=== PATIENT | female | born 1965 | race Caucasian/White ===

== ENCOUNTER 2020-10-24 20:24 | Inpatient (IN) ==
[2020-10-24 22:02] VITALS: BMI 36.3
--- NOTE | 2020-10-24 23:00 | DR.URIAD ---
HPI Time Seen Time Seen by Provider: 10/24/20 22:59 PCP Primary Care Physician: KIMBERLY HPI Comment HPI Comment: PATIENT IS 54YR OLD FEMALE IN ER WITH INCREASING SOB AFTER TESTING POSITIVE FOR COVID 19 VIRUS 11 DAYS AGO. HE TOOK ANTIBIOTIC AND STERIOD. HE CONTINUE TO GET WORSE. Complaint Chief Complaint Doctors Comments: INCREASING SOB. COVID 19 VIRUS POSITIVE 10/14/20. Chief Complaint:: PT AMBUALTORY IN ED WITH C/O DIFFICULTY BREATHING. PT STATES SHE TESTED POSITIVE 10/14 AND WAS PUT ON ZITHROMAX, DECADRON, PLAQUINEL AND VITAMINS. COVID-19 Coronavirus risk:travel/contact w/high risk person: Yes Has patient experienced Coronavirus symptoms: Yes Coronavirus symptoms experienced: Fever, Coughing and Shortness of Breath Reviewed Nurses Notes Reviewed: Yes Source History Provided: Patient Mode of Arrival Mode of Arrival: Ambulatory Timing Onset of Chief Complaint: 10/13/20 Context Recent Treated Infections: URI History of Respiratory: Bronchitis and Steroid Use Quality Quality of Cough: None, Productive and Yellow Rhinorrhea: Clear Shortness of Breath: Moderate Associated Signs and Symptoms Other Signs and Symptoms: Cough, Myalgias, Nasal Symptoms, Shortness of Breath and URI PMH PMH Past Medical History: Yes Past Medical History: Hypertension Past Surgical History: Yes Surgical History: Family History History of Family Medical Conditions: Yes Family Medical History: Diabetes Mellitus, Cancer, [place], Coronary Artery Disease and Hypertension Social History Does patient currently use any type of tobacco product: Yes Have you used tobacco products in the last 12 months: Yes Type of Tobacco Use: Cigarettes Does any household member use tobacco: No Alcohol Use: None Do you use any recreational Drugs:: No Lives With: Spouse and Family Lives Where: Home Travel Risk Coronavirus risk:travel/contact w/high risk person: Yes Has patient experienced Coronavirus symptoms: Yes Coronavirus symptoms experienced: Fever, Coughing and Shortness of Breath Infectious screening In the last 2 months have you had wt loss of >10#?: NO Have you had fever, night sweats or hemotysis?: No Have you traveled outside the country in the last 6 months?: No Isolation: Droplet ROS Review of Systems Constitutional: See HPI, Weakness and Fatigue; negative Fever Eyes: No Symptoms Reported and See HPI ENTM: See HPI, Nose Discharge and Nose Congestion Respiratoy: See HPI, Productive Cough and Short of Breath; negative Wheezing Cardiovascular: See HPI and Chest Pain (TIGHTNESS.) Gastrointestinal/Abdominal: No Symptoms Reported, See HPI and Abdominal Pain; negative Diarrhea Genitourinary: No Symptoms Reported and See HPI; negative Dysuria and Hematuria Neurological: See HPI, Headache and Weakness; negative Dizziness Musculoskeletal: See HPI and Muscle Pain; negative Back Pain Integumentary: No Symptoms Reported and See HPI; negative Change in Color, Rash and Juandice Hematologic/Lymphatic: No Symptoms Reported and See HPI; negative Easy Bruising and Swollen Glands Endocrine: No Symptoms Reported and See HPI; negative Increased Thirst and Increased Urine Psychiatric: No Symptoms Reported and See HPI All Other Systems: Reviewed and Negative PE Vital Signs Vitals: Temperature 98.4 F Pulse Rate [Left] 85 Pulse Rate 87 Respiratory Rate 26 Blood Pressure [Left Arm] 116/67 Blood Pressure 134/77 O2 Sat by Pulse Oximetry 93 General Limitations: No Limitations General Appearance: Alert and In No Apparent Distress Head Head Exam: Normal Inspection and Atraumatic Eyes Eye exam: Normal Appearance and PERRL; negative Scleral Icterus and Conjunctival Injection ENT ENT Exam: Normal External Ear Exam; negative Normal Oropharynx and TM's Normal Bilaterally External Ear Exam: Normal External Inspection; negative Mastoid Tenderness TM/Canal Exam: Bilateral: Normal Nose Exam: Normal Nose Exam Mouth Exam: Normal Inspection; negative Lip Swelling and Tongue Swelling Throat Exam: Tonsillar Erythema; negative Tonsillomegaly and Tonsillar Exudate Neck Neck Exam: Normal Inspection and Trachea Midline; negative Tenderness and Lymphadenopathy Chest Chest Inspection: Normal Inspection and Symmetric Chest Wall Rise; negative Tenderness Respiratory Respiratory Exam: Normal Lung Sounds Bilat; negative Accessory Muscle Use, Chest Wall Tenderness and Respiratory Distress Respiratory Exam: Bilateral: Rhonchi and Lower: Rhonchi Cardiovascular Cardiovascular Exam: Regular Rate, Normal Rhythm and Normal Heart Sounds; negative Systolic Murmur and Diastolic Murmur Abdominal Exam Abdominal Exam: Normal Inspection, Normal Bowel Sounds and Soft; negative Tenderness Extremeties Extremities Exam: Normal Inspection, Tenderness and Normal Capillary Refill; negative Edema and Calf Tenderness Back Back Exam: Normal Inspection; negative (R) CVA Tenderness and (L) CVA Tenderness Neurologic Neurological Exam: Alert, Oriented X3 and CN II-XII Intact; negative Motor Sensory Deficit Psychiatric Psychiatric Exam: Normal Affect and Normal Mood Skin Skin Exam: Warm, Dry, Intact and Normal Color MDM Differential Diagnosis Differential Diagnosis: Otitis media, Streptococcal pharyngitis, Viral pharyngitis, Pneumonia (COVID 19 VIRUS INFECTION.), Sinsusitis and URI COURSE Treatment Treatment: SEE ORDERS. Education/Counseling Education/Counseling: Patient Educated On: Diagnosis ROR Labs Reviewed Laboratory Results Reviewed?: Yes Result Diagrams: 10/28/20 06:23 10/28/20 06:23 Laboratory: 10/24/20 23:40 Blood Blood Culture - Final 10/24/20 23:36 Blood Blood Culture - Final WBC 20.7 X10^3/uL (3.6-10.0) H 10/24/20 23:36 RBC 4.78 X10^6/uL (3.5-5.4) 10/24/20 23:36 Hgb 13.2 g/dL (12.0-16.0) 10/24/20 23:36 Hct 39.8 % (36.0-47.0) 10/24/20 23:36 MCV 83.3 fL (80.0-100.0) 10/24/20 23:36 MCH 27.6 pg (27.0-34.0) 10/24/20 23:36 MCHC 33.2 g/dL (33.0-35.0) 10/24/20 23:36 RDW 13.4 % (11.6-16.5) 10/24/20 23:36 Plt Count 276 X10^3/uL (150.0-450.0) 10/24/20 23:36 Plt Count Comment Adequate (ADEQUATE) 10/24/20 23:36 MPV 8.7 fL (7.4-11.0) 10/24/20 23:36 Neut % (Auto) 77.9 % (42.0-75.0) H 10/24/20 23:36 Lymph % (Auto) 15.1 % (21.0-51.0) L 10/24/20 23:36 [place] % (Auto) 6.5 % (0.0-13.0) 10/24/20 23:36 Eos % (Auto) 0.3 % (0.9-2.9) L 10/24/20 23:36 Baso % (Auto) 0.2 % (0.2-1.0) 10/24/20 23:36 Neut # (Auto) 16.2 x10^3/uL (2.2-4.8) H 10/24/20 23:36 Lymph # (Auto) 3.1 X10^3/uL (1.3-2.9) H 10/24/20 23:36 [place] # (Auto) 1.3 x10^3/uL (0.3-0.8) H 10/24/20 23:36 Eos # (Auto) 0.1 x10^3/uL (0.0-0.2) 10/24/20 23:36 Baso # (Auto) 0.0 X10^3/uL (0.0-0.1) 10/24/20 23:36 Absolute Nucleated RBC 0.0 /100WBC 10/24/20 23:36 Total Counted 100 10/24/20 23:36 Neutrophils % (Manual) 85 % (39-76) H 10/24/20 23:36 Lymphocytes % (Manual) 14 % (13-43) 10/24/20 23:36 Monocytes % (Manual) 1 % (4-9) L 10/24/20 23:36 Plt Morphology Comment Normal (NORMAL) 10/24/20 23:36 RBC Morphology Normal (NORMAL) 10/24/20 23:36 D-Dimer 0.43 ug/ml (0.0-0.57) 10/24/20 23:36 Sample Site Lrad 10/24/20 23:35 ABG pH 7.490 (7.35-7.45) H 10/24/20 23:35 ABG pCO2 36.0 mmHg (35.0-45.0) 10/24/20 23:35 ABG pO2 54.0 mmHg (80.0-100.0) L 10/24/20 23:35 ABG HCO3 27.4 mmol/L (22-26) H 10/24/20 23:35 ABG O2 Saturation 90.0 % (90-100) 10/24/20 23:35 ABG Base Excess 4.0 mmol/L (-2.0-2.0) H 10/24/20 23:35 Steve Test Pos 10/24/20 23:35 A-a Gradient 51.0 mmHg 10/24/20 23:35 FiO2 21.0 10/24/20 23:35 Blood Gas Comments Miki abg well-mtf 10/24/20 23:35 Sodium 127 mmol/L (136-145) L 10/24/20 23:36 Corrected Sodium 135 mmol/L (136-145) L 10/24/20 23:36 Potassium 3.8 mmol/L (3.5-5.1) 10/24/20 23:36 Chloride 90 mmol/L (98-107) L 10/24/20 23:36 Carbon Dioxide 26.7 mmol/L (21-32) 10/24/20 23:36 BUN 30 mg/dL (7-18) H 10/24/20 23:36 Creatinine 1.14 mg/dL (0.55-1.02) H 10/24/20 23:36 Est GFR (MDRD) Af Amer > 60 (>60) 10/24/20 23:36 Est GFR (MDRD) Non-Af 52 (>60) L 10/24/20 23:36 Glucose 442 mg/dL (65-99) H 10/24/20 23:36 Hemoglobin A1c 8.5 % 10/24/20 23:36 Lactic Acid 1.5 mmol/L (0.4-2.0) 10/24/20 23:36 Calcium 9.8 mg/dL (8.5-10.1) 10/24/20 23:36 Corrected Calcium 10.9 mg/dL (8.5-10.1) H 10/24/20 23:36 Total Bilirubin 0.50 mg/dL (0.2-1.0) 10/24/20 23:36 AST 30 Units/L (15-37) 10/24/20 23:36 ALT 41 Units/L (12-78) 10/24/20 23:36 Alkaline Phosphatase 78 Units/L (46-116) 10/24/20 23:36 Creatine Kinase 361 Units/L (26-192) H 10/24/20 23:36 CK-MB (CK-2) 1.5 ng/mL (0-4.0) 10/24/20 23:36 CK/CKMB % Calc 0.4 % (<4) 10/24/20 23:36 Troponin I < 0.02 ng/mL (0-1.5) 10/24/20 23:36 C-Reactive Protein 130.50 mg/L (0-3.0) H 10/24/20 23:36 Total Protein 7.3 g/dL (6.4-8.2) 10/24/20 23:36 Albumin 2.6 g/dL (3.4-5.0) L 10/24/20 23:36 Globulin 4.7 g/dL (2.5-4.5) H 10/24/20 23:36 Albumin/Globulin Ratio 0.6 Ratio (1.1-2.1) L 10/24/20 23:36 Specimen Type Clean catch urine 10/25/20 01:05 Urine Color Straw (YELLOW) 10/25/20 01:05 Urine Appearance Clear (CLEAR) 10/25/20 01:05 Urine pH 6.0 (5.0 - 8.0) 10/25/20 01:05 Ur Specific [place] 1.015 (1.000-1.030) 10/25/20 01:05 Urine Protein 2+ (NEGATIVE) 10/25/20 01:05 Urine Glucose (UA) 4+ (NEGATIVE) 10/25/20 01:05 Urine Ketones Negative (NEGATIVE) 10/25/20 01:05 Urine Occult Blood 1+ (NEGATIVE) 10/25/20 01:05 Urine Nitrite Negative (NEGATIVE) 10/25/20 01:05 Urine Bilirubin Negative (NEGATIVE) 10/25/20 01:05 Urine Urobilinogen Normal (NORMAL) 10/25/20 01:05 Ur Leukocyte Esterase Negative (NEGATIVE) 10/25/20 01:05 Urine RBC 0-2 /HPF (0-3) 10/25/20 01:05 Urine WBC None seen /HPF (0-5) 10/25/20 01:05 Ur Squamous Epith Cells Moderate /HPF (NEGATIVE) 10/25/20 01:05 Urine Bacteria Trace /HPF (NEGATIVE) 10/25/20 01:05 Ur Culture Indicated? No/not indicated 10/25/20 01:05 Acetone, Semi-Quant Negative (NEGATIVE) 10/24/20 23:36 XRAY XRAY Interpreted by: Radiologist (REPORT NOTED AND DISCUSSED WITH PATIENT.) and Self EKG Rate: 73 [place]: Normal Rhythm: NSR Block: IVCD Hypertrophy: LAE ST: Old, Inf, Infarct and Nonsp Opioid Opioid Risk Tool Age (Lazarus box if 16-45): No History of Preadolescent Sexual Abuse: No Total: 0 Total Score Risk Category: Low Risk Copyright: [facility] predicting aberrant behaviors Diagnosis Discharge Problem: SOB (shortness of breath), Hyperglycemia, Hypoxia, COVID-19 virus infection Pneumonia Qualifiers: Pneumonia type: due to unspecified organism Laterality: bilateral Lung location: lower lobe of lung Qualified Code(s): J18.9 - Pneumonia, unspecified organism Instructions Instructions: Anemia Viral Respiratory Infection, Ghvf-Tl-Gysu Home Oxygen Use, Adult Steps to Quit Smoking, Arwl-cl-Cfrn Type 2 Diabetes Mellitus, Self Care, Adult, Jxzg-xe-Ylru Health Risks of Smoking How to Take Your Blood Pressure, Hoou-kp-Lafp Droplet Precautions, Okhb-kn-Uqlw Contact Precautions, Jgoc-pe-Kjrs Hypertension, Mzln-eb-Zsig Acute Respiratory Failure, Adult Tobacco Use Disorder Community-Acquired Pneumonia, Adult Forms: Precautions for COVID19 Patient Portal Social Distancing
[2020-10-24 23:36] LABS: ABG HCO3 27.4 mmol/L (22-26)
[2020-10-24 23:37] LABS: ABG ALLEN TEST POS
[2020-10-24 23:52] LABS: BASOPHILS % (AUTO) 0.2 % (0.2-1.0); EOSINOPHILS # (AUTO) 0.1 x10^3/uL (0.0-0.2); EOSINOPHILS % (AUTO) 0.3 % (0.9-2.9); HEMATOCRIT 39.8 % (36.0-47.0); HEMOGLOBIN 13.2 g/dL (12.0-16.0); LYMPHOCYTES # (AUTO) 3.1 X10^3/uL (1.3-2.9); LYMPHOCYTES % (AUTO) 15.1 % (21.0-51.0); MEAN CORPUSCULAR HEMOGLOBIN 27.6 pg (27.0-34.0); MEAN CORPUSCULAR HGB CONC 33.2 g/dL (33.0-35.0); MEAN CORPUSCULAR VOLUME 83.3 fL (80.0-100.0); MEAN PLATELET VOLUME 8.7 fL (7.4-11.0); MONOCYTES # (AUTO) 1.3 x10^3/uL (0.3-0.8); MONOCYTES % (AUTO) 6.5 % (0.0-13.0); NEUTROPHILS # (AUTO) 16.2 x10^3/uL (2.2-4.8); NEUTROPHILS % (AUTO) 77.9 % (42.0-75.0); PLATELET COUNT 276 X10^3/uL (150.0-450.0); RED BLOOD COUNT 4.78 X10^6/uL (3.5-5.4); RED CELL DISTRIBUTION WIDTH 13.4 % (11.6-16.5); WHITE BLOOD COUNT 20.7 X10^3/uL (3.6-10.0)
[2020-10-25 00:05] LABS: ALANINE AMINOTRANSFERASE 41 Units/L (12-78); ALBUMIN 2.6 g/dL (3.4-5.0); ALKALINE PHOSPHATASE 78 Units/L (46-116); ASPARTATE AMINO TRANSFERASE 30 Units/L (15-37); BLOOD UREA NITROGEN 30 mg/dL (7-18); CALCIUM 9.8 mg/dL (8.5-10.1); CARBON DIOXIDE 26.7 mmol/L (21-32); CHLORIDE 90 mmol/L (98-107); COR CA(FOR HYPOALB) 10.9 mg/dL (8.5-10.1); COR NA(FOR HYPERGLY) 135 mmol/L (136-145); CREATININE 1.14 mg/dL (0.55-1.02); SODIUM 127 mmol/L (136-145); TOTAL PROTEIN 7.3 g/dL (6.4-8.2); eGFR NON BLACK RACES 52 (>60)
[2020-10-25 00:12] LABS: LACTIC ACID 1.5 mmol/L (0.4-2.0)
[2020-10-25 00:13] LABS: CKMB % 0.4 % (<4); CREATINE KINASE 361 Units/L (26-192); CREATINE KINASE MB 1.5 ng/mL (0-4.0); TROPONIN I < 0.02 ng/mL (0-1.5)
[2020-10-25 00:25] LABS: PLATELET MORPHOLOGY COMMENT NORMAL (NORMAL)
--- NOTE | 2020-10-25 01:05 | RAD ---
HISTORYPT STATES SHE TESTED POSITIVE FOR COVID ON 10/14 AND C/O SOBSTUDYCHEST, 1 VIEWCOMPARISONNoneFINDINGSThe trachea is midline. The cardiac silhouette is unremarkable. There are patchy bibasilar infiltrates. The upper lung arnold are clear. No pleural effusion or pneumothorax.. The bony thorax is unremarkable.IMPRESSIONPatchy bibasilar infiltrates.Electronically signed by: Ean Ronquillo (Oct 25, 2020 01:04:03)
[2020-10-25 01:17] LABS: BILIRUBIN,URINE NEGATIVE (NEGATIVE); BLOOD/HEMOGLOBIN,URINE 1+ (NEGATIVE); GLUCOSE, URINE 4+ (NEGATIVE); KETONES,URINE NEGATIVE (NEGATIVE); LEUKOCYTE ESTERASE ,URINE NEGATIVE (NEGATIVE); NITRITES,URINE NEGATIVE (NEGATIVE); PROTEIN,URINE 2+ (NEGATIVE); UROBILINOGEN,URINE NORMAL (NORMAL)
[2020-10-25 01:19] LABS: COLOR,URINE STRAW (YELLOW)
[2020-10-25 01:20] LABS: APPEARANCE,URINE CLEAR (CLEAR)
[2020-10-25 01:28] LABS: RBC,URINE 0-2 /HPF (0-3)
[2020-10-25 01:29] LABS: BACTERIA,URINE TRACE /HPF (NEGATIVE); SQUAMOUS EPITHELIAL CELL,UR MODERATE /HPF (NEGATIVE)
[2020-10-25] MEDS ORDERED: LEVAQUIN PREMIX IV 750 MG 750 MG/150 ML BAG IV ONE ×2 (03:08→03:18)
[2020-10-25] MEDS ORDERED: SOLU-Medrol 125 MG VIAL IVP ONE (03:09)
[2020-10-25] MEDS ORDERED: DUONEB 0.5 MG/3 MG (3 mL) NEB ONE ×2 (03:10→14:14)
[2020-10-25] MEDS ORDERED: SOLU-Medrol 125 MG VIAL ONE ×2 (03:17→12:26)
[2020-10-25] MEDS ORDERED: NS 1000 ML 1,000 ML ONE ×2 (03:17→06:51)
[2020-10-25 03:25] LABS: SERUM ACETONE NEGATIVE (NEGATIVE)
[2020-10-25 03:29] LABS: HEMOGLOBIN A1C 8.5 %
[2020-10-25] MEDS: NS 1000 ML 1,000 ML IV SCH ×4 (03:42→21:42)
[2020-10-25] MEDS ORDERED: TUSSIONEX PENNKINETIC SUSP PO PRN (04:24)
[2020-10-25 05:23] LABS: BASOPHILS % (AUTO) 0.2 % (0.2-1.0); EOSINOPHILS % (AUTO) 0.2 % (0.9-2.9); HEMATOCRIT 39.1 % (36.0-47.0); HEMOGLOBIN 12.9 g/dL (12.0-16.0); LYMPHOCYTES # (AUTO) 2.5 X10^3/uL (1.3-2.9); LYMPHOCYTES % (AUTO) 15.2 % (21.0-51.0); MEAN CORPUSCULAR HEMOGLOBIN 27.7 pg (27.0-34.0); MEAN CORPUSCULAR VOLUME 83.9 fL (80.0-100.0); MEAN PLATELET VOLUME 8.8 fL (7.4-11.0); MONOCYTES % (AUTO) 5.8 % (0.0-13.0); NEUTROPHILS # (AUTO) 13.2 x10^3/uL (2.2-4.8); NEUTROPHILS % (AUTO) 78.6 % (42.0-75.0); PLATELET COUNT 243 X10^3/uL (150.0-450.0); RED BLOOD COUNT 4.66 X10^6/uL (3.5-5.4); RED CELL DISTRIBUTION WIDTH 13.5 % (11.6-16.5); WHITE BLOOD COUNT 16.8 X10^3/uL (3.6-10.0)
[2020-10-25 05:35] LABS: ALANINE AMINOTRANSFERASE 40 Units/L (12-78); ALBUMIN 2.5 g/dL (3.4-5.0); ALKALINE PHOSPHATASE 71 Units/L (46-116); ASPARTATE AMINO TRANSFERASE 30 Units/L (15-37); BLOOD UREA NITROGEN 33 mg/dL (7-18); CALCIUM 9.6 mg/dL (8.5-10.1); CARBON DIOXIDE 24.9 mmol/L (21-32); CHLORIDE 92 mmol/L (98-107); COR CA(FOR HYPOALB) 10.8 mg/dL (8.5-10.1); COR NA(FOR HYPERGLY) 137 mmol/L (136-145); CREATININE 1.11 mg/dL (0.55-1.02); SODIUM 129 mmol/L (136-145); TOTAL PROTEIN 7.2 g/dL (6.4-8.2); eGFR NON BLACK RACES 54 (>60)
[2020-10-25] MEDS ORDERED: REMDESIVIR 200 MG in NS 250 ML IV 250 ML IV NR (07:47)
[2020-10-25] MEDS ORDERED: LOSARTAN HYDROCHLOROTHIAZIDE PO SCH (09:00)
[2020-10-25] MEDS ORDERED: LIPITOR TAB 20 MG PO SCH (09:00)
[2020-10-25] MEDS ORDERED: ASPIRIN EC 81 MG PO SCH (09:00)
[2020-10-25] MEDS ORDERED: REMDESIVIR IV ONE (09:18)
[2020-10-25] MEDS ORDERED: LOPRESSOR TAB 50 MG ONE (09:18)
[2020-10-25] MEDS ORDERED: NS 250 ML IV 250 ML IV ONE (09:19)
[2020-10-25] MEDS: VSL#3 PO SCH (09:59)
[2020-10-25] MEDS: HYZAAR 50/12.5 MG PO SCH (09:59)
[2020-10-25] MEDS: VITAMIN C PO SCH (10:01)
[2020-10-25] MEDS: VITAMIN D3 125 mcg (5,000 UNITS) PO SCH (10:01)
[2020-10-25] MEDS: LOPRESSOR TAB 50 MG PO SCH ×2 (10:01→22:06)
[2020-10-25] MEDS: VITAMIN A PO SCH (10:01)
[2020-10-25] MEDS: ROBITUSSIN DM PO SCH ×4 (10:02→22:07)
[2020-10-25] MEDS ORDERED: LOVENOX INJ 40 MG SYR SC ONE (12:26)
[2020-10-25] MEDS ORDERED: HumuLIN R ONE (12:27)
[2020-10-25] MEDS: LOVENOX INJ 40 MG SYR SC SCH (12:48)
[2020-10-25] MEDS: HumuLIN R SC PRN ×3 (12:50→23:29)
[2020-10-25] MEDS: DUONEB 0.5 MG/3 MG (3 mL) NEB SCH ×2 (14:00→20:35)
[2020-10-25] MEDS: SOLU-Medrol 125 MG VIAL IVP SCH ×2 (14:23→22:07)
--- NOTE | 2020-10-25 16:05 | DR.H&P ---
H&P History & Physical for Day of: H&P Date: 10/25/20 Chief Complaint Chief Complaint: weakness, cough and shortness of breath Allergies Allergies Allergy/AdvReac Type Severity Reaction Status Date / Time No Known Drug Allergies Allergy Verified 10/24/20 22:02 History of Present Illness History of Present Illness: Ms. Sahu is a 54y/o female with a PMH of HTN pr esented with worsening dyspnea, cough and weakness. She tested positive for COVID-19 on 10/13 and reports worsening shortness of breath since then. She states yesterday it got worse and she felt like she wasn't able to breathe so came to the ED. She did complete a course of z-pack, decadron and plaquenil as given by her PCP. She states she is feeling slightly better now. She is currently on 5L O2 via NC. ER work up - CXR: patchy bilateral infiltrates Labs: WBC 20, now 16.8 , Hgb 12.9, Glucose 429 D-dimer (-) A1C 8.5 Acetone (-) ABG 7.49/36/54/27.4 Plan: continue IV levquin, start solumedrol and Remdesivir. Wean O2 as tolerated. Continue bronchodilators. Add vitamin supplements. Start SSI. Check CRP. Monitor AM labs. Follow up ABG and CXR. Resume home medications. Past Medical History Past Medical History: Hypertension Past Surgical History Surgical History: Family History Family Medical History: Hypertension Social History Does patient currently use any type of tobacco product: Yes Have you used tobacco products in the last 12 months: Yes Type of Tobacco Use: Cigarettes Does any household member use tobacco: No Alcohol Use: None Drug Use: None Prescription drug monitoring program results: PDMP reviewed and no concerns identified Medications Home Medications: No Known Drug Allergies Allergy (Verified 10/24/20 22:02) CONTINUE taking the following medications aspirin 81 mg PO DAILY 10/25/20 [History] atorvastatin 20 mg PO DAILY 10/25/20 [History] losartan-hydrochlorothiazide 1 tab PO DAILY 10/25/20 [History] metoprolol tartrate 50 mg PO BID 10/25/20 [History] Labs Result Diagrams: 10/25/20 05:17 10/25/20 05:17 Labs: Laboratory WBC 16.8 X10^3/uL (3.6-10.0) H 12/28/20 05:17 RBC 4.66 X10^6/uL (3.5-5.4) 10/25/20 05:17 Hgb 12.9 g/dL (12.0-16.0) 10/25/20 05:17 Hct 39.1 % (36.0-47.0) 10/25/20 05:17 MCV 83.9 fL (80.0-100.0) 10/25/20 05:17 MCH 27.7 pg (27.0-34.0) 10/25/20 05:17 MCHC 33.0 g/dL (33.0-35.0) 10/25/20 05:17 RDW 13.5 % (11.6-16.5) 10/25/20 05:17 Plt Count 243 X10^3/uL (150.0-450.0) 10/25/20 05:17 Plt Count Comment Adequate (ADEQUATE) 10/24/20 23:36 MPV 8.8 fL (7.4-11.0) 10/25/20 05:17 Neut % (Auto) 78.6 % (42.0-75.0) H 10/25/20 05:17 Lymph % (Auto) 15.2 % (21.0-51.0) L 10/25/20 05:17 [place] % (Auto) 5.8 % (0.0-13.0) 10/25/20 05:17 Eos % (Auto) 0.2 % (0.9-2.9) L 10/25/20 05:17 Baso % (Auto) 0.2 % (0.2-1.0) 10/25/20 05:17 Neut # (Auto) 13.2 x10^3/uL (2.2-4.8) H 10/25/20 05:17 Lymph # (Auto) 2.5 X10^3/uL (1.3-2.9) 10/25/20 05:17 [place] # (Auto) 1.0 x10^3/uL (0.3-0.8) H 10/25/20 05:17 Eos # (Auto) 0.0 x10^3/uL (0.0-0.2) 10/25/20 05:17 Baso # (Auto) 0.0 X10^3/uL (0.0-0.1) 10/25/20 05:17 Absolute Nucleated RBC 0.0 /100WBC 10/25/20 05:17 Total Counted 100 10/24/20 23:36 Neutrophils % (Manual) 85 % (39-76) H 10/24/20 23:36 Lymphocytes % (Manual) 14 % (13-43) 10/24/20 23:36 Monocytes % (Manual) 1 % (4-9) L 10/24/20 23:36 Plt Morphology Comment Normal (NORMAL) 10/24/20 23:36 RBC Morphology Normal (NORMAL) 10/24/20 23:36 D-Dimer 0.43 ug/ml (0.0-0.57) 10/24/20 23:36 Sample Site Lrad 10/24/20 23:35 ABG pH 7.490 (7.35-7.45) H 10/24/20 23:35 ABG pCO2 36.0 mmHg (35.0-45.0) 10/24/20 23:35 ABG pO2 54.0 mmHg (80.0-100.0) L 10/24/20 23:35 ABG HCO3 27.4 mmol/L (22-26) H 10/24/20 23:35 ABG O2 Saturation 90.0 % (90-100) 10/24/20 23:35 ABG Base Excess 4.0 mmol/L (-2.0-2.0) H 10/24/20 23:35 Steve Test Pos 10/24/20 23:35 A-a Gradient 51.0 mmHg 10/24/20 23:35 FiO2 21.0 10/24/20 23:35 Blood Gas Comments Miki abg well-mtf 10/24/20 23:35 Sodium 129 mmol/L (136-145) L 10/25/20 05:17 Corrected Sodium 137 mmol/L (136-145) 10/25/20 05:17 Potassium 3.8 mmol/L (3.5-5.1) 10/25/20 05:17 Chloride 92 mmol/L (98-107) L 10/25/20 05:17 Carbon Dioxide 24.9 mmol/L (21-32) 10/25/20 05:17 BUN 33 mg/dL (7-18) H 10/25/20 05:17 Creatinine 1.11 mg/dL (0.55-1.02) H 10/25/20 05:17 Est GFR (MDRD) Af Amer > 60 (>60) 10/25/20 05:17 Est GFR (MDRD) Non-Af 54 (>60) L 10/25/20 05:17 Glucose 434 mg/dL (65-99) H 10/25/20 05:17 POC Glucose (mg/dL) 429 mg/dL (65-99) H 10/25/20 05:50 Hemoglobin A1c 8.5 % 10/24/20 23:36 Lactic Acid 1.5 mmol/L (0.4-2.0) 10/24/20 23:36 Calcium 9.6 mg/dL (8.5-10.1) 10/25/20 05:17 Corrected Calcium 10.8 mg/dL (8.5-10.1) H 10/25/20 05:17 Total Bilirubin 0.50 mg/dL (0.2-1.0) 10/25/20 05:17 AST 30 Units/L (15-37) 10/25/20 05:17 ALT 40 Units/L (12-78) 10/25/20 05:17 Alkaline Phosphatase 71 Units/L (46-116) 10/25/20 05:17 Creatine Kinase 361 Units/L (26-192) H 10/24/20 23:36 CK-MB (CK-2) 1.5 ng/mL (0-4.0) 10/24/20 23:36 CK/CKMB % Calc 0.4 % (<4) 10/24/20 23:36 Troponin I < 0.02 ng/mL (0-1.5) 10/24/20 23:36 C-Reactive Protein 130.50 mg/L (0-3.0) H 10/24/20 23:36 Total Protein 7.2 g/dL (6.4-8.2) 10/25/20 05:17 Albumin 2.5 g/dL (3.4-5.0) L 10/25/20 05:17 Globulin 4.7 g/dL (2.5-4.5) H 10/25/20 05:17 Albumin/Globulin Ratio 0.5 Ratio (1.1-2.1) L 10/25/20 05:17 Specimen Type Clean catch urine 10/25/20 01:05 Urine Color Straw (YELLOW) 10/25/20 01:05 Urine Appearance Clear (CLEAR) 10/25/20 01:05 Urine pH 6.0 (5.0 - 8.0) 10/25/20 01:05 Ur Specific [place] 1.015 (1.000-1.030) 10/25/20 01:05 Urine Protein 2+ (NEGATIVE) 10/25/20 01:05 Urine Glucose (UA) 4+ (NEGATIVE) 10/25/20 01:05 Urine Ketones Negative (NEGATIVE) 10/25/20 01:05 Urine Occult Blood 1+ (NEGATIVE) 10/25/20 01:05 Urine Nitrite Negative (NEGATIVE) 10/25/20 01:05 Urine Bilirubin Negative (NEGATIVE) 10/25/20 01:05 Urine Urobilinogen Normal (NORMAL) 10/25/20 01:05 Ur Leukocyte Esterase Negative (NEGATIVE) 10/25/20 01:05 Urine RBC 0-2 /HPF (0-3) 10/25/20 01:05 Urine WBC None seen /HPF (0-5) 10/25/20 01:05 Ur Squamous Epith Cells Moderate /HPF (NEGATIVE) 10/25/20 01:05 Urine Bacteria Trace /HPF (NEGATIVE) 10/25/20 01:05 Ur Culture Indicated? No/not indicated 10/25/20 01:05 Acetone, Semi-Quant Negative (NEGATIVE) 10/24/20 23:36 SARS CoV-2 RNA Rapid MOLLY Positive (NEGATIVE) A 10/25/20 04:43 Review of Systems Constitutional: Weakness and Malaise Eyes: No Symptoms Reported ENT: Nose Congestion Respiratory: Cough, Shortness of Breath and SOB with Excertion Cardiovascular: Chest Pain Gastrointestinal: No Symptoms Reported Genitourinary: No Symptoms Reported Musculoskeletal: No Symptoms Reported Skin: No Symptoms Reported Neurological: No Symptoms Reported Physical Exam Vital Signs: Temperature 98.4 F Pulse Rate [Left] 78 Pulse Rate 85 Respiratory Rate 22 Blood Pressure [Left Arm] 98/55 Blood Pressure 134/77 O2 Sat by Pulse Oximetry 94 Oriented: Normal Eyes: Normal Ear: Normal Nose: Normal Respiratory: Diminished Throughout and Rhonchi Throughout Cardiovascular: Normal and Tachycardia Auscultation: Bowel Sounds: Normal Palpation: Normal Tenderness: Normal Skin: Normal Musculoskeletal: Normal Mood Description: Calm Affect: Normal Speech Pattern: Clear and Appropriate Assessment/Plan (1) Acute respiratory failure with hypoxia: Status: Acute (2) Pneumonia due to COVID-19 virus: Status: Acute (3) Diabetes: Qualifiers: Diabetes mellitus type: type 2 Diabetes mellitus tank terminal gauger insulin use: without intermediate use Diabetes mellitus complication status: without complication Qualified Code(s): E11.9 - Type 2 diabetes mellitus without complications Status: Acute (4) HTN (hypertension): Qualifiers: Hypertension type: essential hypertension Qualified Code(s): I10 - Essential (primary) hypertension Status: Acute (5) Anemia: Qualifiers: Anemia type: unspecified type Qualified Code(s): D64.9 - Anemia, unspecified Status: Acute Review H&P Reviewed: Yes Patient was examined?: Yes
[2020-10-25] MEDS: LIPITOR TAB 20 MG PO SCH (22:06)
[2020-10-26] MEDS: SOLU-Medrol 125 MG VIAL IVP SCH ×3 (05:38→21:06)
[2020-10-26] MEDS: NS 1000 ML 1,000 ML IV SCH ×4 (05:38→19:58)
[2020-10-26] MEDS ORDERED: HumuLIN R ONE ×2 (05:45→11:40)
[2020-10-26] MEDS: HumuLIN R SC PRN ×4 (05:48→22:17)
[2020-10-26 06:12] LABS: BASOPHILS % (AUTO) 0.1 % (0.2-1.0); HEMATOCRIT 33.8 % (36.0-47.0); HEMOGLOBIN 11.1 g/dL (12.0-16.0); LYMPHOCYTES # (AUTO) 2.9 X10^3/uL (1.3-2.9); LYMPHOCYTES % (AUTO) 17.5 % (21.0-51.0); MEAN CORPUSCULAR HEMOGLOBIN 27.3 pg (27.0-34.0); MEAN PLATELET VOLUME 8.9 fL (7.4-11.0); MONOCYTES # (AUTO) 0.7 x10^3/uL (0.3-0.8); NEUTROPHILS # (AUTO) 12.9 x10^3/uL (2.2-4.8); NEUTROPHILS % (AUTO) 78.4 % (42.0-75.0); PLATELET COUNT 256 X10^3/uL (150.0-450.0); RED BLOOD COUNT 4.07 X10^6/uL (3.5-5.4); RED CELL DISTRIBUTION WIDTH 13.6 % (11.6-16.5); WHITE BLOOD COUNT 16.4 X10^3/uL (3.6-10.0)
[2020-10-26 06:41] LABS: BLOOD UREA NITROGEN 29 mg/dL (7-18); CALCIUM 8.5 mg/dL (8.5-10.1); CARBON DIOXIDE 24.4 mmol/L (21-32); CHLORIDE 101 mmol/L (98-107); COR NA(FOR HYPERGLY) 142 mmol/L (136-145); CREATININE 0.87 mg/dL (0.55-1.02); SODIUM 136 mmol/L (136-145); eGFR NON BLACK RACES > 60 (>60)
[2020-10-26] MEDS: DUONEB 0.5 MG/3 MG (3 mL) NEB SCH ×4 (07:20→21:31)
[2020-10-26] MEDS ORDERED: LOVENOX INJ 40 MG SYR SC ONE (08:17)
[2020-10-26] MEDS ORDERED: REMDESIVIR IV ONE (08:17)
[2020-10-26] MEDS ORDERED: ASPIRIN 81 MG CHEWTAB ONE (08:17)
[2020-10-26] MEDS ORDERED: LOPRESSOR TAB 50 MG ONE (08:17)
[2020-10-26] MEDS ORDERED: NS 250 ML IV 250 ML IV ONE (08:18)
[2020-10-26] MEDS ORDERED: ROBITUSSIN DM ONE (08:18)
[2020-10-26] MEDS: ASPIRIN 81 MG CHEWTAB PO SCH (08:32)
[2020-10-26] MEDS: HYZAAR 50/12.5 MG PO SCH (08:32)
[2020-10-26] MEDS: LOVENOX INJ 40 MG SYR SC SCH (08:34)
[2020-10-26] MEDS: VSL#3 PO SCH (08:36)
[2020-10-26] MEDS: ROBITUSSIN DM PO SCH ×4 (08:36→21:00)
[2020-10-26] MEDS: REMDESIVIR 100 MG in NS 250 ML IV 250 ML IV SCH (08:36)
[2020-10-26] MEDS: VITAMIN C PO SCH (08:37)
[2020-10-26] MEDS: VITAMIN D3 125 mcg (5,000 UNITS) PO SCH (08:37)
[2020-10-26] MEDS: LOPRESSOR TAB 50 MG PO SCH ×2 (08:40→20:59)
[2020-10-26] MEDS: VITAMIN A PO SCH (08:41)
[2020-10-26] MEDS ORDERED: LEVAQUIN PREMIX IV 750 MG 750 MG/150 ML BAG IV ONE (08:44)
[2020-10-26] MEDS: LEVAQUIN PREMIX IV 750 MG 750 MG/150 ML BAG IV SCH (08:45)
[2020-10-26] MEDS ORDERED: LANTUS SC SCH (09:00)
--- NOTE | 2020-10-26 10:11 | RAD ---
HISTORYCOVID-19, hypoxiaSTUDYChest AP [id number] inflation accentuates the heart size. It is likely within normal limits. The earl are normal. The lung arnold now appear clear. The previously noted infiltrates no longer identified. No pleural effusions are identified. Bony thorax is unremarkable.IMPRESSIONLungs hypoinflated but now clearElectronically signed by: GABRIELLA LUO (Oct 26, 2020 10:08:55)
[2020-10-26] MEDS ORDERED: DUONEB 0.5 MG/3 MG (3 mL) NEB ONE (13:00)
[2020-10-26] MEDS ORDERED: ROBITUSSIN (PLAIN) ONE (13:35)
--- NOTE | 2020-10-26 15:15 | PCM.PROG ---
Progress Note Progress Note for Day of Date of Exam: 10/26/20 Subjective Subjective: Patient seen at bedside, no overnight events. She states she feels a lot better. She is currently on 4L NC. She has intermittent cough. Denies fever or chills. Denies GI Sx. She has been tolerating PO intake. Labs: Hgb 11.1 WBC 16.4 BUN/Cr: 29/0.87 Glucose 466 CRP 60 Plan: repeat CXR today, continue current treatment with IV steroids, Levaquin and Remdesivir. Wean O2 as tolerated, currently on 4L. Add Lantus 10 units qAM and continue SSI for hyperglycemia. Continue aggressive pulmonary toilet, bronchodilators and vitamin support. Past Medical Family Social History Past Med/Fam/Surg Hx: No changes since H&P Allergies: Allergies No Known Drug Allergies Allergy (Verified 10/24/20 22:02) Review of Systems ROS: No change since H&P Vital Signs and I&O's Vital Signs: Temperature 98.1 F Pulse Rate [Left] 70 Pulse Rate 89 Respiratory Rate 20 Blood Pressure [Left Arm] 127/70 Blood Pressure 134/77 O2 Sat by Pulse Oximetry 96 Intake and Output: Intake & Output 10/23/20 10/24/20 10/25/20 10/26/20 23:59 23:59 23:59 23:59 Intake Total 3615 / 3615 1325 / 1325 Output Total 600 / 600 Balance 3015 / 3015 1325 / 1325 Physical Exam Oriented: Normal Eyes: Normal Ear: Normal Nose: Normal Respiratory: Generalized and Diminished Cardiovascular: Normal Auscultation: Bowel Sounds: Normal Tenderness: Normal Skin: Normal Musculoskeletal: Normal Psychiatric: Normal Mood Description: Calm Affect: Normal Speech Pattern: Clear and Appropriate Laboratory and Diagnostics Result Diagrams: 10/26/20 05:11 10/26/20 11:56 Labs: 10/24/20 23:40 Blood Blood Culture - Preliminary 10/24/20 23:36 Blood Blood Culture - Preliminary Laboratory WBC 16.4 X10^3/uL (3.6-10.0) H 10/26/20 05:11 RBC 4.07 X10^6/uL (3.5-5.4) 10/26/20 05:11 Hgb 11.1 g/dL (12.0-16.0) L 10/26/20 05:11 Hct 33.8 % (36.0-47.0) L 10/26/20 05:11 MCV 83.0 fL (80.0-100.0) 10/26/20 05:11 MCH 27.3 pg (27.0-34.0) 10/26/20 05:11 MCHC 33.0 g/dL (33.0-35.0) 10/26/20 05:11 RDW 13.6 % (11.6-16.5) 10/26/20 05:11 Plt Count 256 X10^3/uL (150.0-450.0) 10/26/20 05:11 Plt Count Comment Adequate (ADEQUATE) 10/24/20 23:36 MPV 8.9 fL (7.4-11.0) 10/26/20 05:11 Neut % (Auto) 78.4 % (42.0-75.0) H 10/26/20 05:11 Lymph % (Auto) 17.5 % (21.0-51.0) L 10/26/20 05:11 [place] % (Auto) 4.0 % (0.0-13.0) 10/26/20 05:11 Eos % (Auto) 0.0 % (0.9-2.9) L 10/26/20 05:11 Baso % (Auto) 0.1 % (0.2-1.0) L 10/26/20 05:11 Neut # (Auto) 12.9 x10^3/uL (2.2-4.8) H 10/26/20 05:11 Lymph # (Auto) 2.9 X10^3/uL (1.3-2.9) 10/26/20 05:11 [place] # (Auto) 0.7 x10^3/uL (0.3-0.8) 10/26/20 05:11 Eos # (Auto) 0.0 x10^3/uL (0.0-0.2) 10/26/20 05:11 Baso # (Auto) 0.0 X10^3/uL (0.0-0.1) 10/26/20 05:11 Absolute Nucleated RBC 0.1 /100WBC 10/26/20 05:11 Total Counted 100 10/24/20 23:36 Neutrophils % (Manual) 85 % (39-76) H 10/24/20 23:36 Lymphocytes % (Manual) 14 % (13-43) 10/24/20 23:36 Monocytes % (Manual) 1 % (4-9) L 10/24/20 23:36 Plt Morphology Comment Normal (NORMAL) 10/24/20 23:36 RBC Morphology Normal (NORMAL) 10/24/20 23:36 D-Dimer 0.43 ug/ml (0.0-0.57) 10/24/20 23:36 Sample Site Lrad 10/24/20 23:35 ABG pH 7.490 (7.35-7.45) H 10/24/20 23:35 ABG pCO2 36.0 mmHg (35.0-45.0) 10/24/20 23:35 ABG pO2 54.0 mmHg (80.0-100.0) L 10/24/20 23:35 ABG HCO3 27.4 mmol/L (22-26) H 10/24/20 23:35 ABG O2 Saturation 90.0 % (90-100) 10/24/20 23:35 ABG Base Excess 4.0 mmol/L (-2.0-2.0) H 10/24/20 23:35 Steve Test Pos 10/24/20 23:35 A-a Gradient 51.0 mmHg 10/24/20 23:35 FiO2 21.0 10/24/20 23:35 Blood Gas Comments Miki abg well-mtf 10/24/20 23:35 Sodium 136 mmol/L (136-145) 10/26/20 05:11 Corrected Sodium 142 mmol/L (136-145) 10/26/20 05:11 Potassium 3.8 mmol/L (3.5-5.1) 10/26/20 05:11 Chloride 101 mmol/L (98-107) 10/26/20 05:11 Carbon Dioxide 24.4 mmol/L (21-32) 10/26/20 05:11 BUN 29 mg/dL (7-18) H 10/26/20 05:11 Creatinine 0.87 mg/dL (0.55-1.02) 10/26/20 05:11 Est GFR (MDRD) Af Amer > 60 (>60) 10/26/20 05:11 Est GFR (MDRD) Non-Af > 60 (>60) 10/26/20 05:11 Glucose 466 mg/dL (65-99) H 10/26/20 11:56 POC Glucose (mg/dL) 431 mg/dL (65-99) H 10/26/20 11:27 Hemoglobin A1c 8.5 % 10/24/20 23:36 Lactic Acid 1.5 mmol/L (0.4-2.0) 10/24/20 23:36 Calcium 8.5 mg/dL (8.5-10.1) 10/26/20 05:11 Corrected Calcium 10.8 mg/dL (8.5-10.1) H 10/25/20 05:17 Total Bilirubin 0.50 mg/dL (0.2-1.0) 10/25/20 05:17 AST 30 Units/L (15-37) 10/25/20 05:17 ALT 40 Units/L (12-78) 10/25/20 05:17 Alkaline Phosphatase 71 Units/L (46-116) 10/25/20 05:17 Creatine Kinase 361 Units/L (26-192) H 10/24/20 23:36 CK-MB (CK-2) 1.5 ng/mL (0-4.0) 10/24/20 23:36 CK/CKMB % Calc 0.4 % (<4) 10/24/20 23:36 Troponin I < 0.02 ng/mL (0-1.5) 10/24/20 23:36 C-Reactive Protein 60.70 mg/L (0-3.0) H 10/26/20 05:11 Total Protein 7.2 g/dL (6.4-8.2) 10/25/20 05:17 Albumin 2.5 g/dL (3.4-5.0) L 10/25/20 05:17 Globulin 4.7 g/dL (2.5-4.5) H 10/25/20 05:17 Albumin/Globulin Ratio 0.5 Ratio (1.1-2.1) L 10/25/20 05:17 Specimen Type Clean catch urine 10/25/20 01:05 Urine Color Straw (YELLOW) 10/25/20 01:05 Urine Appearance Clear (CLEAR) 10/25/20 01:05 Urine pH 6.0 (5.0 - 8.0) 10/25/20 01:05 Ur Specific [place] 1.015 (1.000-1.030) 10/25/20 01:05 Urine Protein 2+ (NEGATIVE) 10/25/20 01:05 Urine Glucose (UA) 4+ (NEGATIVE) 10/25/20 01:05 Urine Ketones Negative (NEGATIVE) 10/25/20 01:05 Urine Occult Blood 1+ (NEGATIVE) 10/25/20 01:05 Urine Nitrite Negative (NEGATIVE) 10/25/20 01:05 Urine Bilirubin Negative (NEGATIVE) 10/25/20 01:05 Urine Urobilinogen Normal (NORMAL) 10/25/20 01:05 Ur Leukocyte Esterase Negative (NEGATIVE) 10/25/20 01:05 Urine RBC 0-2 /HPF (0-3) 10/25/20 01:05 Urine WBC None seen /HPF (0-5) 10/25/20 01:05 Ur Squamous Epith Cells Moderate /HPF (NEGATIVE) 10/25/20 01:05 Urine Bacteria Trace /HPF (NEGATIVE) 10/25/20 01:05 Ur Culture Indicated? No/not indicated 10/25/20 01:05 Acetone, Semi-Quant Negative (NEGATIVE) 10/24/20 23:36 SARS CoV-2 RNA Rapid MOLLY Positive (NEGATIVE) A 10/25/20 04:43 Plan (1) Acute respiratory failure with hypoxia: Status: Acute (2) Pneumonia due to COVID-19 virus: Status: Acute (3) Diabetes: Status: Acute Qualifiers: Diabetes mellitus complication status: without complication Diabetes mellitus intermodal dispatcher insulin use: without intermodal dispatcher use Diabetes mellitus type: type 2 Qualified Code(s): E11.9 - Type 2 diabetes mellitus without complications (4) HTN (hypertension): Status: Acute Qualifiers: Hypertension type: essential hypertension Qualified Code(s): I10 - Essential (primary) hypertension (5) Anemia: Status: Acute Qualifiers: Anemia type: unspecified type Qualified Code(s): D64.9 - Anemia, unspecified
[2020-10-26] MEDS: SNACK - Diabetic Appropriate PO SCH (20:23)
[2020-10-26] MEDS: LIPITOR TAB 20 MG PO SCH (20:59)
[2020-10-27] MEDS: HumuLIN R SC PRN ×5 (02:15→21:09)
[2020-10-27] MEDS: NS 1000 ML 1,000 ML IV SCH (03:38)
[2020-10-27] MEDS: SOLU-Medrol 125 MG VIAL IVP SCH ×3 (06:01→21:09)
[2020-10-27] MEDS: DUONEB 0.5 MG/3 MG (3 mL) NEB SCH ×3 (06:20→21:04)
[2020-10-27 06:35] LABS: BASOPHILS % (AUTO) 0.1 % (0.2-1.0); HEMATOCRIT 32.7 % (36.0-47.0); HEMOGLOBIN 10.7 g/dL (12.0-16.0); LYMPHOCYTES % (AUTO) 17.8 % (21.0-51.0); MEAN CORPUSCULAR HEMOGLOBIN 27.4 pg (27.0-34.0); MEAN CORPUSCULAR HGB CONC 32.7 g/dL (33.0-35.0); MEAN CORPUSCULAR VOLUME 83.9 fL (80.0-100.0); MEAN PLATELET VOLUME 8.7 fL (7.4-11.0); MONOCYTES # (AUTO) 0.6 x10^3/uL (0.3-0.8); MONOCYTES % (AUTO) 2.5 % (0.0-13.0); NEUTROPHILS # (AUTO) 18.1 x10^3/uL (2.2-4.8); NEUTROPHILS % (AUTO) 79.6 % (42.0-75.0); PLATELET COUNT 285 X10^3/uL (150.0-450.0); RED CELL DISTRIBUTION WIDTH 13.8 % (11.6-16.5); WHITE BLOOD COUNT 22.7 X10^3/uL (3.6-10.0)
[2020-10-27 06:51] LABS: BLOOD UREA NITROGEN 24 mg/dL (7-18); CALCIUM 8.1 mg/dL (8.5-10.1); CARBON DIOXIDE 19.4 mmol/L (21-32); CHLORIDE 102 mmol/L (98-107); COR NA(FOR HYPERGLY) 138 mmol/L (136-145); CREATININE 0.76 mg/dL (0.55-1.02); SODIUM 133 mmol/L (136-145); eGFR NON BLACK RACES > 60 (>60)
[2020-10-27 07:47] LABS: PLATELET MORPHOLOGY COMMENT NORMAL (NORMAL)
[2020-10-27] MEDS: ASPIRIN 81 MG CHEWTAB PO SCH (10:00)
[2020-10-27] MEDS: LANTUS SC SCH (10:01)
[2020-10-27] MEDS: HYZAAR 50/12.5 MG PO SCH (10:01)
[2020-10-27] MEDS: LEVAQUIN PREMIX IV 750 MG 750 MG/150 ML BAG IV SCH (10:02)
[2020-10-27] MEDS: LOPRESSOR TAB 50 MG PO SCH ×2 (10:02→21:09)
[2020-10-27] MEDS: LOVENOX INJ 40 MG SYR SC SCH (10:02)
[2020-10-27] MEDS: VITAMIN A PO SCH (10:03)
[2020-10-27] MEDS: ROBITUSSIN DM PO SCH ×4 (10:03→21:09)
[2020-10-27] MEDS: VITAMIN D3 125 mcg (5,000 UNITS) PO SCH (10:03)
[2020-10-27] MEDS: VITAMIN C PO SCH (10:03)
[2020-10-27] MEDS: VSL#3 PO SCH (10:04)
--- NOTE | 2020-10-27 11:36 | PCM.PROG ---
Progress Note Subjective Subjective: Patient seen at bedside, no overnight events. She states she feels a lot better. She is currently on 3L NC. Denies fever or chills. Denies GI Sx. She has been tolerating PO intake. Labs: WBC 22.7 Hgb 10.7 WBC 16.4 Glucose 302 CXR yesterday: clear with no infiltrates Plan: Wean O2 as tolerated. Continue IV Levaquin, Remdesivir and taper steroids. Increase Lantus to 15 units qAM. Continue SSI. Continue aggressive pulmonary toilet, bronchodilators and vitamin support. Walk test to evaluate for home O2. PT/OT as tolerated. Past Medical Family Social History Past Med/Fam/Surg Hx: No changes since H&P Allergies: Allergies No Known Drug Allergies Allergy (Verified 10/24/20 22:02) Review of Systems ROS: No change since H&P Vital Signs and I&O's Vital Signs: Temperature 97.9 F Pulse Rate [Left] 72 Pulse Rate 72 Respiratory Rate 18 Blood Pressure [Left Arm] 142/74 Blood Pressure 134/77 O2 Sat by Pulse Oximetry 94 Intake and Output: Intake & Output 10/24/20 10/25/20 10/26/20 10/27/20 23:59 23:59 23:59 23:59 Intake Total 3615 / 3615 4571 / 4571 1207 / 1207 Output Total 600 / 600 Balance 3015 / 3015 4571 / 4571 1207 / 1207 Physical Exam Oriented: Normal Eyes: Normal Ear: Normal Nose: Normal Respiratory: Generalized and Diminished (improved air entry ) Cardiovascular: Normal Auscultation: Bowel Sounds: Normal Tenderness: Normal Skin: Normal Musculoskeletal: Normal Psychiatric: Normal Mood Description: Calm Affect: Normal Speech Pattern: Clear and Appropriate Laboratory and Diagnostics Result Diagrams: 10/27/20 05:50 10/27/20 05:50 Labs: 10/24/20 23:40 Blood Blood Culture - Preliminary 10/24/20 23:36 Blood Blood Culture - Preliminary Laboratory WBC 22.7 X10^3/uL (3.6-10.0) H 10/27/20 05:50 RBC 3.90 X10^6/uL (3.5-5.4) 10/27/20 05:50 Hgb 10.7 g/dL (12.0-16.0) L 10/27/20 05:50 Hct 32.7 % (36.0-47.0) L 10/27/20 05:50 MCV 83.9 fL (80.0-100.0) 10/27/20 05:50 MCH 27.4 pg (27.0-34.0) 10/27/20 05:50 MCHC 32.7 g/dL (33.0-35.0) L 10/27/20 05:50 RDW 13.8 % (11.6-16.5) 10/27/20 05:50 Plt Count 285 X10^3/uL (150.0-450.0) 10/27/20 05:50 Plt Count Comment Adequate (ADEQUATE) 10/27/20 05:50 MPV 8.7 fL (7.4-11.0) 10/27/20 05:50 Neut % (Auto) 79.6 % (42.0-75.0) H 10/27/20 05:50 Lymph % (Auto) 17.8 % (21.0-51.0) L 10/27/20 05:50 [place] % (Auto) 2.5 % (0.0-13.0) 10/27/20 05:50 Eos % (Auto) 0.0 % (0.9-2.9) L 10/27/20 05:50 Baso % (Auto) 0.1 % (0.2-1.0) L 10/27/20 05:50 Neut # (Auto) 18.1 x10^3/uL (2.2-4.8) H 10/27/20 05:50 Lymph # (Auto) 4.0 X10^3/uL (1.3-2.9) H 10/27/20 05:50 [place] # (Auto) 0.6 x10^3/uL (0.3-0.8) 10/27/20 05:50 Eos # (Auto) 0.0 x10^3/uL (0.0-0.2) 10/27/20 05:50 Baso # (Auto) 0.0 X10^3/uL (0.0-0.1) 10/27/20 05:50 Absolute Nucleated RBC 0.0 /100WBC 10/27/20 05:50 Total Counted 100 10/27/20 05:50 Neutrophils % (Manual) 77 % (39-76) H 10/27/20 05:50 Lymphocytes % (Manual) 20 % (13-43) 10/27/20 05:50 Monocytes % (Manual) 3 % (4-9) L 10/27/20 05:50 Plt Morphology Comment Normal (NORMAL) 10/27/20 05:50 RBC Morphology Normal (NORMAL) 10/27/20 05:50 D-Dimer 0.43 ug/ml (0.0-0.57) 10/24/20 23:36 Sample Site Lrad 10/24/20 23:35 ABG pH 7.490 (7.35-7.45) H 10/24/20 23:35 ABG pCO2 36.0 mmHg (35.0-45.0) 10/24/20 23:35 ABG pO2 54.0 mmHg (80.0-100.0) L 10/24/20 23:35 ABG HCO3 27.4 mmol/L (22-26) H 10/24/20 23:35 ABG O2 Saturation 90.0 % (90-100) 10/24/20 23:35 ABG Base Excess 4.0 mmol/L (-2.0-2.0) H 10/24/20 23:35 Steve Test Pos 10/24/20 23:35 A-a Gradient 51.0 mmHg 10/24/20 23:35 FiO2 21.0 10/24/20 23:35 Blood Gas Comments Miki abg well-mtf 10/24/20 23:35 Sodium 133 mmol/L (136-145) L 10/27/20 05:50 Corrected Sodium 138 mmol/L (136-145) 10/27/20 05:50 Potassium 3.6 mmol/L (3.5-5.1) 10/27/20 05:50 Chloride 102 mmol/L (98-107) 10/27/20 05:50 Carbon Dioxide 19.4 mmol/L (21-32) L 10/27/20 05:50 BUN 24 mg/dL (7-18) H 10/27/20 05:50 Creatinine 0.76 mg/dL (0.55-1.02) 10/27/20 05:50 Est GFR (MDRD) Af Amer > 60 (>60) 10/27/20 05:50 Est GFR (MDRD) Non-Af > 60 (>60) 10/27/20 05:50 Glucose 302 mg/dL (65-99) H 10/27/20 05:50 POC Glucose (mg/dL) 286 mg/dL (65-99) H 10/27/20 05:28 Hemoglobin A1c 8.5 % 10/24/20 23:36 Lactic Acid 1.5 mmol/L (0.4-2.0) 10/24/20 23:36 Calcium 8.1 mg/dL (8.5-10.1) L 10/27/20 05:50 Corrected Calcium 10.8 mg/dL (8.5-10.1) H 10/25/20 05:17 Total Bilirubin 0.50 mg/dL (0.2-1.0) 10/25/20 05:17 AST 30 Units/L (15-37) 10/25/20 05:17 ALT 40 Units/L (12-78) 10/25/20 05:17 Alkaline Phosphatase 71 Units/L (46-116) 10/25/20 05:17 Creatine Kinase 361 Units/L (26-192) H 10/24/20 23:36 CK-MB (CK-2) 1.5 ng/mL (0-4.0) 10/24/20 23:36 CK/CKMB % Calc 0.4 % (<4) 10/24/20 23:36 Troponin I < 0.02 ng/mL (0-1.5) 10/24/20 23:36 C-Reactive Protein 60.70 mg/L (0-3.0) H 10/26/20 05:11 Total Protein 7.2 g/dL (6.4-8.2) 10/25/20 05:17 Albumin 2.5 g/dL (3.4-5.0) L 10/25/20 05:17 Globulin 4.7 g/dL (2.5-4.5) H 10/25/20 05:17 Albumin/Globulin Ratio 0.5 Ratio (1.1-2.1) L 10/25/20 05:17 Specimen Type Clean catch urine 10/25/20 01:05 Urine Color Straw (YELLOW) 10/25/20 01:05 Urine Appearance Clear (CLEAR) 10/25/20 01:05 Urine pH 6.0 (5.0 - 8.0) 10/25/20 01:05 Ur Specific [place] 1.015 (1.000-1.030) 10/25/20 01:05 Urine Protein 2+ (NEGATIVE) 10/25/20 01:05 Urine Glucose (UA) 4+ (NEGATIVE) 10/25/20 01:05 Urine Ketones Negative (NEGATIVE) 10/25/20 01:05 Urine Occult Blood 1+ (NEGATIVE) 10/25/20 01:05 Urine Nitrite Negative (NEGATIVE) 10/25/20 01:05 Urine Bilirubin Negative (NEGATIVE) 10/25/20 01:05 Urine Urobilinogen Normal (NORMAL) 10/25/20 01:05 Ur Leukocyte Esterase Negative (NEGATIVE) 10/25/20 01:05 Urine RBC 0-2 /HPF (0-3) 10/25/20 01:05 Urine WBC None seen /HPF (0-5) 10/25/20 01:05 Ur Squamous Epith Cells Moderate /HPF (NEGATIVE) 10/25/20 01:05 Urine Bacteria Trace /HPF (NEGATIVE) 10/25/20 01:05 Ur Culture Indicated? No/not indicated 10/25/20 01:05 Acetone, Semi-Quant Negative (NEGATIVE) 10/24/20 23:36 SARS CoV-2 RNA Rapid MOLLY Positive (NEGATIVE) A 10/25/20 04:43 Plan (1) Acute respiratory failure with hypoxia: Status: Acute (2) Pneumonia due to COVID-19 virus: Status: Acute (3) Diabetes: Status: Acute Qualifiers: Diabetes mellitus complication status: without complication Diabetes mellitus fci insulin use: without remote computer terminal operator use Diabetes mellitus type: type 2 Qualified Code(s): E11.9 - Type 2 diabetes mellitus without complications (4) HTN (hypertension): Status: Acute Qualifiers: Hypertension type: essential hypertension Qualified Code(s): I10 - Essential (primary) hypertension (5) Anemia: Status: Acute Qualifiers: Anemia type: unspecified type Qualified Code(s): D64.9 - Anemia, unspecified
[2020-10-27] MEDS: REMDESIVIR 100 MG in NS 250 ML IV 250 ML IV SCH (12:09)
[2020-10-27] MEDS: LIPITOR TAB 20 MG PO SCH (21:09)
[2020-10-27] MEDS: SNACK - Diabetic Appropriate PO SCH (21:09)
[2020-10-28] MEDS: HumuLIN R SC PRN (03:00)
[2020-10-28] MEDS: DUONEB 0.5 MG/3 MG (3 mL) NEB SCH (05:51)
--- NOTE | 2020-10-28 06:11 | RAD ---
HISTORYCOVID, MONITORING PULMONARY STATUSSTUDYCHEST, 1 [id number] trachea is midline. The cardiac silhouette is unremarkable. Patchy bibasilar infiltrates a new from previous 10/26/2020. The upper lung arnold are clear.. The bony thorax is unremarkable.IMPRESSIONPatchy bibasilar infiltratesElectronically signed by: Ean Ronquillo (Oct 28, 2020 06:09:32)
[2020-10-28 06:57] LABS: BASOPHILS % (AUTO) 0.2 % (0.2-1.0); HEMATOCRIT 34.4 % (36.0-47.0); HEMOGLOBIN 11.2 g/dL (12.0-16.0); LYMPHOCYTES # (AUTO) 4.2 X10^3/uL (1.3-2.9); LYMPHOCYTES % (AUTO) 23.1 % (21.0-51.0); MEAN CORPUSCULAR HEMOGLOBIN 27.1 pg (27.0-34.0); MEAN CORPUSCULAR HGB CONC 32.5 g/dL (33.0-35.0); MEAN CORPUSCULAR VOLUME 83.3 fL (80.0-100.0); MEAN PLATELET VOLUME 8.6 fL (7.4-11.0); MONOCYTES # (AUTO) 0.7 x10^3/uL (0.3-0.8); MONOCYTES % (AUTO) 4.1 % (0.0-13.0); NEUTROPHILS # (AUTO) 13.2 x10^3/uL (2.2-4.8); NEUTROPHILS % (AUTO) 72.6 % (42.0-75.0); PLATELET COUNT 291 X10^3/uL (150.0-450.0); RED BLOOD COUNT 4.13 X10^6/uL (3.5-5.4); RED CELL DISTRIBUTION WIDTH 13.8 % (11.6-16.5); WHITE BLOOD COUNT 18.2 X10^3/uL (3.6-10.0)
[2020-10-28 07:11] LABS: BLOOD UREA NITROGEN 21 mg/dL (7-18); CALCIUM 8.4 mg/dL (8.5-10.1); CARBON DIOXIDE 26.7 mmol/L (21-32); CHLORIDE 105 mmol/L (98-107); COR NA(FOR HYPERGLY) 144 mmol/L (136-145); CREATININE 0.84 mg/dL (0.55-1.02); SODIUM 141 mmol/L (136-145); eGFR NON BLACK RACES > 60 (>60)
[2020-10-28] MEDS ORDERED: IVERMECTIN PO ONE (07:50)
[2020-10-28] MEDS ORDERED: REMDESIVIR 200 MG in NS 250 ML IV 250 ML IV ONE (08:02)
[2020-10-28] MEDS ORDERED: DECADRON TAB PO SCH (09:00)
[2020-10-28] MEDS: VITAMIN D3 125 mcg (5,000 UNITS) PO SCH (09:20)
[2020-10-28] MEDS: VSL#3 PO SCH (09:20)
[2020-10-28] MEDS: ROBITUSSIN DM PO SCH (09:21)
[2020-10-28] MEDS: VITAMIN A PO SCH (09:21)
[2020-10-28] MEDS: HYZAAR 50/12.5 MG PO SCH (09:21)
[2020-10-28] MEDS: VITAMIN C PO SCH (09:21)
[2020-10-28] MEDS: LOPRESSOR TAB 50 MG PO SCH (09:22)
[2020-10-28] MEDS: ASPIRIN 81 MG CHEWTAB PO SCH (09:25)
[2020-10-28] MEDS: LANTUS SC SCH (09:57)
[2020-10-28] MEDS: LOVENOX INJ 40 MG SYR SC SCH (09:57)
[2020-10-28] MEDS: LEVAQUIN PREMIX IV 750 MG 750 MG/150 ML BAG IV SCH (11:12)
[2020-10-28 11:31] VITALS: BP 140/78
== END 2020-10-28 11:30 | disposition home or self-care (01) | DRG 177 ==
LOC: ER 21:55 → OBS 21:55 → OBSVTOIN 10-25 03:58 → OBS 10-25 04:00 → ER 10-25 04:00 → MED/SURG 10-26 14:02
PROVIDERS: ADMIT Internal Medicine; ATTEND Internal Medicine
DX: R94.31 Abnormal electrocardiogram [ECG] [EKG]; U07.1 COVID-19; D64.9 Anemia, unspecified; R79.82 Elevated C-reactive protein (CRP); J12.89 Other viral pneumonia; I10 Essential (primary) hypertension; E11.65 Type 2 diabetes mellitus with hyperglycemia; J96.01 Acute respiratory failure with hypoxia